=== PATIENT | male | born 1990 | race Caucasian/White ===

== ENCOUNTER 2020-06-27 08:37 | Emergency (ER) | payer OTHER ==
[~2020-06-27] VITALS: Ht 193 cm; Wt 88.5 kg
[2020-06-27] MEDS ORDERED: KEFLEX500 M1 PO (09:47)
[2020-06-27] MEDS ORDERED: NORCO 5-325 TA1 EAC2 PO (09:47)
[2020-06-27 10:02] VITALS: BP 109/83
== END 2020-06-27 10:02 | disposition home or self-care (01) ==
LOC: M.ERS 08:37
DX: S01.311A Laceration without foreign body of right ear, initial encounter (principal); R55 Syncope and collapse; W22.8XXA Striking against or struck by other objects, initial encounter; Y93.89 Activity, other specified; Y92.89 Other specified places as the place of occurrence of the external cause; Y99.8 Other external cause status

== ENCOUNTER 2020-07-15 13:16 | Emergency (ER) | payer OTHER ==
[~2020-07-15] VITALS: Ht 193 cm; Wt 90.7 kg
[~2020-07-15 13:16] MED LIST: KEFLEX500 M1 PO; NORCO 5-325 TA1 EAC2 PO
[2020-07-15 13:44] VITALS: BP 145/92
== END 2020-07-15 13:47 | disposition home or self-care (01) ==
LOC: M.ERS 13:16
DX: S01.311D Laceration without foreign body of right ear, subsequent encounter (principal); Z48.02 Encounter for removal of sutures; X58.XXXD Exposure to other specified factors, subsequent encounter